=== PATIENT | female | born 1955 | race African-American/Black ===

== ENCOUNTER → 2019-07-19 | Outpatient (CLI) | payer OTHER | LOC: CAT 09:11 | DX: Z13.6 Encounter for screening for cardiovascular disorders (principal); I25.10 Atherosclerotic heart disease of native coronary artery without angina pectoris; E78.00 Pure hypercholesterolemia, unspecified ==

== ENCOUNTER → 2020-06-20 | Outpatient (CLI) | payer BC ==
[~2020-06-20] MED LIST: ASA81BEC PO; BUPROPION XL300 MG PO; HYDROCHLOROTH12.5 M2 PO; OMEPRAZOLE40 MG PO; ROSUVASTATIN CA10 MG PO; VERAPAMIL E.R240 M1 PO
== END ==
LOC: SJCVCIMAG 10:12
PROVIDERS: ATTEND Internal Medicine Cardiovascular Disease
DX: I08.8 Other rheumatic multiple valve diseases (principal); I11.9 Hypertensive heart disease without heart failure; R94.31 Abnormal electrocardiogram [ECG] [EKG]; R53.83 Other fatigue; R53.1 Weakness; E78.5 Hyperlipidemia, unspecified

== ENCOUNTER → 2020-06-21 | Outpatient (CLI) | payer BC ==
[~2020-06-21] VITALS: Ht 162.6 cm; Wt 72.3 kg
[2020-06-21 08:16] VITALS: BP 130/61
[2020-06-21 08:22] LABS: HEMATOCRIT 34.7 % (37.0-47.0); HEMOGLOBIN 11.6 gm/dL (12.0-15.0); MCH 26.3 pg (26.0-34.0); MCHC 33.4 g/dL (28.0-37.0); MCV 78.8 fL (80.0-100.0); RBC 4.41 mil/uL (4.20-5.00); RDW 14.4 % (10.5-14.5); WBC 5.1 thou/uL (4.0-11.0)
[2020-06-21 08:38] LABS: CALCIUM 9.7 mg/dL (8.5-10.1); CREATININE 0.9 mg/dL (0.6-1.0); POTASSIUM 3.1 mmol/L (3.5-5.1)
--- NOTE | 2020-06-21 08:45 | EKG ---
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 : 1955 Requested By: Adelso Munguia Order Number: [id number] MD: Yomi Martinez Measurements Intervals [place] Rate: 65 P: 56 CA: 183 QRS: -21 QRSD: 101 T: 28 QT: 446 QTc: 464 Interpretive Statements Sinus rhythm Left ventricular hypertrophy Nonspecific ST and T wave abnormality Compared to ECG 10/03/2003 10:59:39 No significant change was found Electronically Signed On 06-21-2020 8:45:15 CDT by Yomi Martinez [email or web address] <ELECTRONICALLY SIGNED> By: Yomi Martinez MD, [facility] 06/21/20 0845 8 Yomi Martinez MD, FACC /EPI
--- NOTE | 2020-06-21 11:35 | CATHLAB ---
[facility] [place] [address] INVASIVE PROCEDURE REPORT Name: JEFFRY FRAGA Room #: REG MARITZA Molina#: [id number] Admission: 06/21/20 Attend Phys: Adelso Munguia MD Discharge: Date of : 57 Report #: [id number] THIS REPORT FOR: cc: Luis Acosta Steven F. DO Park, Jin S. MD ~ APPROVED REPORT Study performed: 06/21/2020 08:50:35 Patient Details Patient Status: Out-Patient Room #: The patient is a 65 year-old female Event Personnel Adelso Munguia Lead Engineer, Keyonna Boyer RTSevero Monitor, Deya Moore Jones, Jessica RN RN, [place] Fam RN slag expander Performed Art Access - R femoral artery* Left Heart Cath w/or w/o Coronaries [id number] [facility] Hemostasis with Manual pressure 83890 Initial Mod Sed Same Phys/QHP Gr 293224 02623 Mod Sed Same Phys/QHP Ea 414270 Indication Dyspnea, Positive stress test, Chest pain Risk Factors Hypercholesterolemia, Coronary Artery DiseaseHypertension Procedure Narrative The Right Groin^ was infiltrated with 1% Lidocaine subcutaneous anesthesia. A PINNACLE 4FR Sheath #[id number] sheath was inserted into the RFA^. Coronary angiography was performed using coronary diagnostic catheters. The right coronary system was accessed and visualized with a JR4 catheter. The left coronary system was accessed and visualized with a JL4 catheter. The left ventricle was accessed and visualized with a PIGTAIL catheter. Left ventriculogram was performed in 30 degree projection. Hemostasis was obtained with manual pressure following sheath removal without any complications. The patient tolerated the procedure well and there were no complications associated with the procedure. There was no hematoma. [facility] [address] [place] [address] INVASIVE PROCEDURE REPORT Name: JEFFRY FRAGA Room #: REG [facility]#: [id number] Admission: 06/21/20 Attend Phys: Adelso Munguia MD Discharge: Date of : 57 Report #: [id number] Intraoperative Conscious Sedation Sedation start time: 9:13 Case end Time: 9:39 Fentanyl 50 mcg Versed 2 mg Fluoro Time: 1.43 minutes Dose: DAP 1838.20 cGycm2 235 mGy Contrast Type and Amount: Omnipaque 75 ml Coronary Angiography The patient's coronary anatomy is co- dominant. Diagnostic Cath Left Main The left main artery is a large-caliber vessel, appears angiographically normal. LAD The LAD is a moderate-sized caliber vessel, traverses the anterior wall and wraps around the apex. Overall, this vessel is patent with minimal plaquing noted in the midsegment. Diagonal 1 There is a small caliber vessel, appears angiographically normal. Diagonal 2 There is a small caliber vessel, appears angiographically normal. Diagonal 3 There is a small caliber vessel, appears angiographically normal. Circumflex The left circumflex artery is a codominant vessel, appears angiographically normal. OM1 This is a moderate-sized caliber vessel, patent with no flow-limiting lesions. OM2 This is a moderate-sized caliber vessel, patent with no flow-limiting lesions. This vessel supplies several branches as it courses of the inferolateral wall. OM3 There is a small caliber vessel, appears angiographically normal. Right Coronary The RCA is a moderate-sized caliber vessel, patent with no flow-limiting lesions. R PDA This is a small to moderate-sized caliber vessel, patent with no flow-limiting lesions. Left Ventriculography The left ventricle is normal in size with Borderline contractility. The left ventricular ejection fraction is estimated to be 50%. Hemodynamics The aortic pressure is 135/57 mmHg with a mean of 71 mmHg. The left [facility] [address] [place] [address] INVASIVE PROCEDURE REPORT Name: JEFFRY FRAGA Room #: REG [facility]#: [id number] Admission: 06/21/20 Attend Phys: Adelso Munguia MD Discharge: Date of : 57 Report #: [id number] ventricular pressure is 143/9 mmHg with a mean of mmHg. The left ventricular end diastolic pressure is 28 mmHg. Conclusion 1. Angiographically normal coronary arteries with minimal plaquing noted in the mid LAD segment. 2. This is a codominant system. 3. There is lownormal LV systolic function. 4. Recommend risk factor management. <ELECTRONICALLY SIGNED> By: Adelso Munguia MD 06/21/20 1134 1134 1134 Adelso Munguia MD /INF
== END | disposition home or self-care (01) ==
LOC: CATH 11:11
PROVIDERS: ATTEND Internal Medicine Cardiovascular Disease
DX: R07.9 Chest pain, unspecified (principal); I25.10 Atherosclerotic heart disease of native coronary artery without angina pectoris; R94.39 Abnormal result of other cardiovascular function study; R06.00 Dyspnea, unspecified; I10 Essential (primary) hypertension; E78.00 Pure hypercholesterolemia, unspecified; E78.5 Hyperlipidemia, unspecified; K21.9 Gastro-esophageal reflux disease without esophagitis; Z98.890 Other specified postprocedural states; Z79.899 Other long term (current) drug therapy; Z87.891 Personal history of nicotine dependence; Z88.2 Allergy status to sulfonamides; Z88.8 Allergy status to other drugs, medicaments and biological substances

== ENCOUNTER → 2020-09-23 | Outpatient (CLI) | payer OTHER | END | disposition home or self-care (01) | LOC: GI 06:26 | PROVIDERS: ATTEND Specialist | DX: D64.9 Anemia, unspecified (principal); K92.1 Melena ==